=== PATIENT | female | born 1995 | race African-American/Black ===

== ENCOUNTER 2020-01-02 11:35 | Outpatient (REF) | payer OTHER, SELFPAY ==
[2020-01-05 20:02] LABS: TS Negative Control Passed; TS Panel A 1; TS Panel B 1; TS Positive Control Passed; TSpotTB Negative (SeeBelow)
== END 2020-01-02 11:36 | disposition home or self-care (01) ==
LOC: HO.HMGCLDS 11:35
PROVIDERS: PCP Family Medicine; Visit Provider Hospitalist
DX: R76.11 Nonspecific reaction to tuberculin skin test without active tuberculosis (principal)
CPT/HCPCS: 86481

== ENCOUNTER 2020-01-31 10:02 | Outpatient (REF) | payer OTHER, SELFPAY | END 2020-01-31 10:03 | disposition home or self-care (01) | LOC: HO.WFDLNP 10:02 | PROVIDERS: Visit Provider Family Medicine | DX: Z20.828 Contact with and (suspected) exposure to other viral communicable diseases (principal) | CPT/HCPCS: U0003 ==